=== PATIENT | female | born 1940 | race Caucasian/White ===

== ENCOUNTER 2018-08-24 16:27 | Observation (INO) ==
--- NOTE | 2018-08-24 17:56 | Diag Imaging Result Doc PS360 ---
CHEST-PORTABLE - 08/24/2018 INDICATION: syncope COMPARISON: 06/08/2014 FINDINGS: The lungs are normally expanded and clear. Heart size and mediastinal contours are normal. No pneumothorax or pleural effusion. IMPRESSION: Negative exam. Electronically signed by Noel Jones 08/24/2018 5:54 PM
--- NOTE | 2018-08-24 18:01 | Diag Imaging Result Doc PS360 ---
CT HEAD W/O CONTRAST - 08/24/2018 INDICATION: syncope COMPARISON: None FINDINGS: There is some dilation of the lateral ventricles. There is extensive periventricular cerebral white matter hypodensity bilaterally. No intracranial mass or midline shift. No intracranial hemorrhage. The skull is intact. The sinuses, mastoids, and middle ears are clear. IMPRESSION: Dilated ventricles out of proportion to the cerebral atrophy. This may represent normal pressure hydrocephalus. Periventricular white matter hypodensity may represent edema from this or chronic microvascular disease. This exam was performed using automated exposure control, adjustment of mA or kV according to patient size, and/or use of iterative reconstruction technique Electronically signed by Noel Jones 08/24/2018 5:58 PM
[2018-08-24 18:14] LABS: BASO# 0.01 X1000 (0.0-0.2); BASO% 0.1 % (0.0-0.8); EOS# 0.09 X1000 (0.0-0.7); EOS% 0.7 % (0.0-10.0); HEMATOCRIT 42.8 % (37.0-47.0); HEMOGLOBIN 14.5 g/dL (12.0-16.0); IMM GRAN# 0.03 X1000 (0.0-0.04); IMM GRAN% 0.2 % (0.0-0.5); LYMPH# 0.78 X1000 (1.2-3.4); LYMPH% 6.1 % (20.5-51.1); MCH 30.6 PG (27-31); MCHC 33.9 g/dL (33-37); MCV 90.3 FL (81-99); MONO# 0.64 X1000 (0.11-0.59); NEUT# 11.31 X1000 (1.4-6.5); NEUT% 87.9 % (42.2-75.2); PLT 271 X1000 (130-400); RBC 4.74 XMIL (4.2-5.4); RDW 12.7 % (11.5-14.5); WBC 12.86 X1000 (4.8-10.8)
[2018-08-24 18:29] LABS: ALB/GLOB RATIO 1.8; ALBUMIN 4.3 g/dL (3.5-5.0); CALCIUM 9.4 mg/dL (8.8-10.2); CREATININE 0.9 mg/dL (0.5-0.9); POTASSIUM 3.9 mmol/L (3.5-5.1); TOTAL BILIRUBIN 0.53 mg/dL (0.20-1.00); TOTAL PROTEIN 6.7 g/dL (6.3-8.3)
--- NOTE | 2018-08-24 18:57 | PROVIDER DOCUMENTATION ---
This chart was entered by Nidia Mayes Scribe, acting as scribe for Simba Mata DO. HPI-Syncope/Dizziness - General Source: patient, family (daughter), EMS - History of Present Illness-Syncope/Dizzy Prior Episodes: reports: single episode today Onset/Duration: reports: just prior to arrival Timing: reports: gone now Position/Activity at time of episode: reports: sitting Symptoms prior to episode: reports: abdominal pain, confusion. denies: headache, lightheaded, visual disturbance, nausea/vomiting, racing heart, back pain, diaphoresis, recent head trauma, rapid heart beat Context: reports: lost consciousness Loss of Consciousness: prolonged (minutes) (20) Current Symptoms: reports: none/feels normal Recently Seen Here or By Another Healthcare Provider: No <Simba Mata - Last Filed: 08/24/18 18:56> <Mukul Aranda - Last Filed: 08/24/18 20:24> - General Chief Complaint: Syncope Stated Complaint: SYNCOPE Time Seen by Provider: 08/24/18 16:35 Allergies/Adverse Reactions: Patient Allergies Allergy/AdvReac Type Severity Reaction Status Date / Time shellfish derived Allergy Severe ANAPHYLAXIS Verified 08/24/18 18:08 latex Allergy Unknown Verified 08/24/18 18:08 Home Medications: Home Medication List Medication Instructions Recorded Confirmed Last Taken Type Lisinopril/Hydrochlorothiazide 1 each PO DAILY 06/02/13 04/25/18 04/24/18 08:00 History [Lisinopril-Hctz 10-12.5 mg Tab] Metoprolol Tartrate 50 mg PO BID 06/02/13 04/25/18 04/25/18 03:30 History Cyanocobalamin (Vitamin B-12) 5,000 mcg SL DAILY 04/22/18 04/25/18 04/24/18 17:30 History [Vitamin B-12] Sennosides/Docusate Sodium [Stool 2 each PO DAILY 04/22/18 04/25/18 04/23/18 17:30 History Softener-Laxative Tablet] Docusate Sodium [Colace] 100 mg PO BID #30 capsule 04/25/18 Unknown Rx Hydrocodone/Acetaminophen [[place] 1 each PO Q6H PRN PRN #10 tablet 04/25/18 Unknown Rx 5-325 Tablet] Ondansetron HCl [Zofran] 4 mg PO Q6H PRN PRN #10 tablet 04/25/18 Unknown Rx - History of Present Illness-Syncope/Dizzy Nature of Presenting Problem: 78 yof presents to the ed via ems with c/o syncopal episode while going to the t oilet, pt then was incontinent of stool and had 20 minutes of LOC per daughter. pt sts got up this am at 0300 and was getting ready to have Easter with family. pt sts was outside with great grandchildren when she felt the urge for diarrhea and went in the house to the bathroom. pt made it to the bathroom and then had a syncopal episode. pt was confused when ems aos and enroute to er pt came back t o baseline. pt on exam is back to baseline and in no distress. daughter is with pt (Simba Mata) Review of Systems - Adult - REVIEW OF SYSTEMS - ADULT Constitutional: denies: chills, fever Eyes: reports: no symptoms reported Ears, Nose, Mouth & Throat: reports: no symptoms reported Cardiovascular: reports: syncope. denies: chest pain, palpitations Respiratory: denies: cough, shortness of breath, wheezing Gastrointestinal: reports: see HPI, abdominal pain, diarrhea (x1). denies: nausea, vomiting Genitourinary: reports: no symptoms reported Musculoskeletal: reports: no symptoms reported Integumentary: reports: no symptoms reported Neurological: denies: dizziness/vertigo, headache/migraines Psychiatric: reports: no symptoms reported Endocrine: reports: no symptoms reported Hematologic/Lymphatic: reports: no symptoms reported Allergic/Immunologic: reports: no symptoms reported All Other Systems: Reviewed and Negative <Simba Mata - Last Filed: 08/24/18 18:56> Past History - Adult - PAST MEDICAL HISTORY-ADULT Review of Records: reports: Nursing Assessment Review, Medications Reviewed Major Childhood Illnesses: reports: denies history Cardiovascular: reports: HTN Respiratory: reports: denies history Gastrointestinal: reports: denies history Obstetrical/Gynecological: reports: denies history Genitourinary: reports: denies history Musculoskeletal: reports: denies history Neurological: reports: denies history Endocrine/Immune: reports: denies history Other Conditions: reports: denies history - PRIOR SURGERIES/PROCEDURES Surgical/Procedure History: reports: hernia repair - IMMUNIZATION STATUS Childhood Immunizations: See Nurse Assessment Flu Vaccine: See Nurse Assessment - FAMILY HISTORY Family History: reviewed, not pertinent - SOCIAL HISTORY Smoking: quit greater than 1 year Substance Use: alcohol Alcohol Use Frequency: 5-6 times a week (at night wine) Number of drinks per typical drinking period:: 1 drink Living Situation: family <Simba Mata - Last Filed: 08/24/18 18:56> Physical Exam-General - PHYSICAL EXAM-ADULT Initial Vital Signs Reviewed: Yes - CONSTITUTIONAL General Appearance: appears well, alert, no apparent distress (pt is back to baseline and in no distress) - EYES Eyes: PERRL/EOMI, pink conjunctivae - HEAD, EARS, NOSE, MOUTH & THROAT HENMT: moist mucous membranes, normal ENT inspection, TMs normal, pharynx normal - NECK Neck: non-tender, full range of motion, supple, normal inspection - RESPIRATORY Respiratory: chest non-tender, lungs clear, normal breath sounds, no pleuratic chest pain, no respiratory distress, no accessory muscle use - CARDIOVASCULAR Cardiovascular: normal peripheral pulses, regular rate, rhythm - CHEST (BREASTS) Chest/Breast: deferred - GASTROINTESTINAL (ABDOMEN) Abdominal Exam: normal bowel sounds, non tender, soft - LYMPHATIC Lymphatic: no adenopathy - MUSCULOSKELETAL Back Exam: normal inspection, no CVA tenderness, no vertebral tenderness Extremity: normal range of motion, non-tender, normal gait, normal inspection, no pedal edema, no calf tenderness, normal capillary refill, pelvis stable - SKIN Integumentary: normal color, normal turgor, warm/dry - NEUROLOGIC Neurologic: grossly normal, no motor/sensory deficits - PSYCHIATRIC Psych/Mental Status: normal mood/affect, normal thought content, normal thought process, oriented x 3 <Simba Mata - Last Filed: 08/24/18 18:56> Progress - PLAN OF CARE/RESULTS Result Diagrams: 08/24/18 17:53 08/24/18 17:53 - CHANGE OF SHIFT REPORT (ED Provider) 1 Report Given and Care Transferred to:: Dr Aranda Time of Transfer: 18:57 <Simba Mata - Last Filed: 08/24/18 18:56> - PLAN OF CARE/RESULTS Result Diagrams: 08/24/18 17:53 08/24/18 17:53 <Mukul Aranda - Last Filed: 08/24/18 20:24> - PLAN OF CARE/RESULTS Progress/Plan/Lab Results: Vital Signs - 8 hr 08/24/18 16:36 08/24/18 18:03 Temperature 98.6 F Pulse Rate 114 H Respiratory Rate 18 Blood Pressure 139/67 O2 Sat by Pulse Oximetry 95 98 Laboratory Results - last 24 hr 08/24/18 08/24/18 08/24/18 17:53 17:53 17:53 WBC 12.86 H RBC 4.74 Hgb 14.5 Hct 42.8 MCV 90.3 MCH 30.6 MCHC 33.9 RDW Std Deviation 12.7 Plt Count 271 MPV 10.0 Immature Gran % (Auto) 0.2 Neut % (Auto) 87.9 H Lymph % (Auto) 6.1 L [place] % (Auto) 5.0 Eos % (Auto) 0.7 Baso % (Auto) 0.1 Immature Gran # (Auto) 0.03 Neut # (Auto) 11.31 H Lymph # (Auto) 0.78 L [place] # (Auto) 0.64 H Eos # (Auto) 0.09 Baso # (Auto) 0.01 Sodium 134 L Potassium 3.9 Chloride 96 L Carbon Dioxide 25 Anion Gap 13 BUN 19 Creatinine 0.9 Estimated GFR/1.73 m2 60 BUN/Creatinine Ratio 21 Glucose 155 H POC Glucose Calculated Osmolality 274 Calcium 9.4 Total Bilirubin 0.53 AST 17 ALT 11 Alkaline Phosphatase 82 Creatine Kinase 79 Troponin T < 0.010 Total Protein 6.7 Albumin 4.3 Globulin 2.4 Albumin/Globulin Ratio 1.8 08/24/18 18:04 WBC RBC Hgb Hct MCV MCH MCHC RDW Std Deviation Plt Count MPV Immature Gran % (Auto) Neut % (Auto) Lymph % (Auto) [place] % (Auto) Eos % (Auto) Baso % (Auto) Immature Gran # (Auto) Neut # (Auto) Lymph # (Auto) [place]ayer # (Auto) Eos # (Auto) Baso # (Auto) Sodium Potassium Chloride Carbon Dioxide Anion Gap BUN Creatinine Estimated GFR/1.73 m2 BUN/Creatinine Ratio Glucose POC Glucose 179 H Calculated Osmolality Calcium Total Bilirubin AST ALT Alkaline Phosphatase Creatine Kinase Troponin T Total Protein Albumin Globulin Albumin/Globulin Ratio Orders Category Date Time Status CHEST-PORTABLE [RAD] Stat Exams 04/21/19 16:[address] HEAD W/O CONTRAST [CT] Stat Exams 08/24/18 16:50 Completed CBC WITH ELECTRONIC DIFF [HEME] Stat Lab 08/24/18 17:53 Completed CK PROFILE [SP CHEM] Stat Lab 08/24/18 17:53 Completed COMPREHENSIVE METABOLIC PANEL [CHEM] Stat Lab 08/24/18 17:53 Completed TROPONIN T Stat Lab 08/24/18 17:53 Completed UA NIMS W/REFLEX CULT [URINALYSIS] Stat Lab 08/24/18 16:52 Uncollected 0.9% Sodium Chloride Inj [Ns] 1,000 ml Med 08/24/18 20:19 Active IV 999 mls/hr EKG [EKG] Stat Ther 08/24/18 16:29 Ordered Pt signed out to me by Dr. Mata, pt has probable dehydration from diarrhea, given age and syncopal episode will admit for overnight observation (Mukul Aranda) Departure <Simba Mata - Last Filed: 08/24/18 18:56> - Departure Date of Disposition Decision: 08/24/18 Time of Disposition Decision: 20:23 Certified Medical Emergency: Emergent - Critical Care Note This patient required my direct & personal management of CC.: No <Mukul Aranda - Last Filed: 08/24/18 20:24> - Departure DIAGNOSIS: Syncope Qualifiers: Syncope type: unspecified Qualified Code(s): R55 - Syncope and collapse Diarrhea Qualifiers: Diarrhea type: presumed infectious Qualified Code(s): R19.7 - Diarrhea, unspecified Disposition: ADMITTED INPATIENT 09 Condition: Stable Referrals and Follow-Ups: Gilmar Preciado MD [Primary Care Provider] - Attestation - Physician/ SHARAD Attestation Patient care was provided by Advanced Practice Provider:: No The physician spent face to face time with patient:: Yes Advanced Practice Provider documentation review:: Supervising physician onsite and consulted in the evaluation and care of this patient. The physician did have a face to face encounter with the patient. <Simba Mata - Last Filed: 08/24/18 18:56> - Physician/ SHARAD Attestation Patient care was provided by Advanced Practice Provider:: No The physician spent face to face time with patient:: Yes Advanced Practice Provider documentation review:: Supervising physician onsite and consulted in the evaluation and care of this patient. The physician did have a face to face encounter with the patient. <Mukul Aranda - Last Filed: 08/24/18 20:24> This chart was documented by the indicated scribe, (Nidia Mayes, Alirio) and accurately reflects the services I performed and decisions made by , Simba Mata DO, as attested by the provider's signature.
[2018-08-24] MEDS ORDERED: NS 1,000 ML IV ONE (20:19)
[2018-08-24] MEDS ORDERED: IMODIUM PO ONE (20:41)
--- NOTE | 2018-08-24 21:38 | HISTORY AND PHYSICAL ---
PRIMARY CARE PHYSICIAN: Dr. Preciado. CHIEF COMPLAINT: Passed out and diarrhea. HISTORY OF PRESENTING ILLNESS: An 78-year-old female with a history of urinary incontinence, hypertension, B12 deficiency and gait apraxia who was brought to the emergency department after she had an episode where she passed out. The patient apparently was having Easter lunch with family then she felt like she was having diarrhea. She went to the bathroom. The next thing she knew that she somehow slumped over and passed out. The patient's family states that she was out for about 15 to 30 minutes. She was brought to the emergency department. She was evaluated and due to her presenting symptoms, it was thought that we will place her for observation for further evaluation, management. At the time of my examination, she denied any headache, fever, chills, chest pain, shortness of breath, hemoptysis, melena or any weight changes but complained of just feeling nauseated and possibly having diarrhea. The patient also has a history of gait ataxia. Unclear what workup she exactly had in the past. She had a CAT scan done which did show the possibility of normal pressure hydrocephalus. PAST MEDICAL HISTORY: Includes urine incontinence, hypertension, B12. PAST SURGICAL HISTORY: Hernia repair, right shoulder surgery, cataract surgery. ALLERGIES: Shellfish and latex. CURRENT MEDICATIONS: Include B12 5000 mcg sublingual daily, Colace 100 mg p.o. b.i.d., [place] 5/325 one p.o. q.6 hours, lisinopril HCT 10/12.5 one p.o. daily, metoprolol 50 mg p.o. b.i.d., Zofran 4 mg p.o. q.6 hours. SOCIAL HISTORY: A 40 pack years history of smoking. Admits to social alcohol use. Denies illicit drug use. FAMILY HISTORY: No history of coronary disease. REVIEW OF SYSTEMS: Fourteen point review of system is as in HPI. Other systems negative. PHYSICAL EXAMINATION: GENERAL: Cooperative, friendly, elderly female. She is resting comfortably now. VITAL SIGNS: Temperature 98.6 degrees, pulse 114, respirations 18, blood pressure 139/67, saturating 95%. HEENT: Atraumatic, normocephalic. Extraocular movements intact. PERRLA. NECK: No masses. CHEST: Clear to auscultation. CARDIOVASCULAR: Regular rate and rhythm. ABDOMEN: Soft. Positive bowel sounds. EXTREMITIES: No edema. NEUROLOGIC: She is awake, alert, oriented x3. : No bladder distention. SKIN: Warm. LABORATORIES AND STUDIES: WBC 12.86, hemoglobin 14.5, hematocrit 42.8, platelets 271,000. Sodium 134, potassium 3.9, chloride 96, CO2 25, BUN is 19, creatinine 0.9, glucose 155. CT of the head shows possibility of normal-pressure hydrocephalus. ASSESSMENT: An 78-year-old female with a history of hypertension, urine incontinence and B12 deficiency who had presented to emergency department with 1-day history of having an episode where she passed out. She was brought to the emergency department. Due to her presenting symptoms, we will place her for observation for further evaluation, management. 1. Syncopal episode. 2. Abnormal CT of the head showing normal pressure hydrocephalus. 3. Diarrhea. 4. Hypertension. PLAN: 1. We will admit patient to medical floor with telemetry. 2. Check orthostatic blood pressure and pulse. 3. We will continue with IV fluid hydration. 4. We will consult Neurology for evaluation of normal pressure hydrocephalus. 5. We will check stool studies including C difficile, fecal leukocytes. 6. We will monitor blood pressure closely. 7. Put patient on DVT prophylaxis with SCDs. 8. We will continue to follow and reassess and make further recommendation based on patient's clinical course. cc: Preet Addison MD MTDD
[2018-08-24] MEDS ORDERED: ZOFRAN IV PRN (22:31)
[2018-08-24] MEDS: NS 1,000 ML IV SCH (23:12)
[2018-08-25 03:01] LABS: URINE SOURCE CLEAN CATCH
[2018-08-25 03:05] LABS: BILIRUBIN URINE NEGATIVE (NEGATIVE); BLOOD URINE SMALL (NEGATIVE); COLOR YELLOW; GLUCOSE URINE NEGATIVE (NEGATIVE); KETONE URINE TRACE mg/dL (NEGATIVE); LEUKOCYTES URINE MODERATE (NEGATIVE); NITRITE URINE NEGATIVE (NEGATIVE); PH URINE 5.5; PROTEIN URINE TRACE mg/dL (NEGATIVE); SP GRAVITY URINE 1.016; TURBIDITY URINE CLEAR (CLEAR); UROBILINOGEN URINE NORMAL (NORMAL)
[2018-08-25 03:06] LABS: UR EPITHELIAL CELLS <10 /HPF (<10); URINE BACTERIA NEGATIVE /HPF; URINE RBC <10 /HPF (<10)
[2018-08-25 08:18] LABS: BASO# 0.02 X1000 (0.0-0.2); BASO% 0.2 % (0.0-0.8); EOS# 0.08 X1000 (0.0-0.7); HEMOGLOBIN 12.1 g/dL (12.0-16.0); LYMPH# 1.43 X1000 (1.2-3.4); LYMPH% 17.4 % (20.5-51.1); MCH 30.8 PG (27-31); MCHC 33.6 g/dL (33-37); MCV 91.6 FL (81-99); MONO# 0.65 X1000 (0.11-0.59); MONO% 7.9 % (1.7-9.3); MPV 10.1 FL (7.4-10.4); NEUT# 6.04 X1000 (1.4-6.5); NEUT% 73.5 % (42.2-75.2); PLT 219 X1000 (130-400); RBC 3.93 XMIL (4.2-5.4); RDW 12.5 % (11.5-14.5); WBC 8.22 X1000 (4.8-10.8)
[2018-08-25 08:25] LABS: AGAP 7; BUN 14 mg/dL (8-22); CALCIUM 8.3 mg/dL (8.8-10.2); CHLORIDE 105 mmol/L (98-107); COSMO 276; CREATININE 0.4 mg/dL (0.5-0.9); ESTIMATED GFR > 60; GLUCOSE 99 mg/dL (70-104); POTASSIUM 3.9 mmol/L (3.5-5.1); SODIUM 138 mmol/L (136-145); TCO2 26 mmol/L (25-35)
--- NOTE | 2018-08-25 08:25 | EKG Report ---
Test Performed on : 08/24/2018 5:48:26 PM Test Reason : syncope Blood Pressure : / mmHG Vent. Rate : 109 BPM Atrial Rate : 109 BPM P-R Int : 166 ms QRS Dur : 086 ms QT Int : 350 ms P-R-T Axes : 051 -09 031 degrees QTc Int : 471 ms Sinus tachycardia. Possible Left atrial enlargement Inferior infarct , age undetermined Cannot rule out Anterior infarct (cited on or before 08-JUN-2014) Abnormal ECG When compared with ECG of 22-APR-2018 13:12, Vent. rate has increased BY 41 BPM Inferior infarct is now present Nonspecific T wave abnormality no longer evident in Anterior leads Unconfirmed Result
[2018-08-25] MEDS: ASPIRIN EC PO SCH (12:12)
[2018-08-25] MEDS: VITAMIN B-12 SL SCH (12:12)
[2018-08-25] MEDS: LOPRESSOR PO SCH ×2 (12:12→20:22)
--- NOTE | 2018-08-25 13:22 | ECHO REPORT ---
ORDER DATE: 08/24/2018 INTERPRETING PHYSICIAN: Conner Morrell MD ECHOCARDIOGRAPHIC MEASUREMENTS: 1. Interventricular septum 1.3 cm. 2. Left ventricular posterior wall 1.3 cm. 3. Diastolic diameter 3.6 cm. 4. Left atrium 5 cm. 5. Aorta 3 cm. SUMMARY OF THE 2-DIMENSIONAL IMAGES: 1. There is left atrial enlargement. 2. The aortic valve leaflets are trileaflet. 3. Pulmonic valve was normal. 4. Tricuspid valve was normal. 5. Mitral valve was normal. 6. There is moderate mitral annular calcification. 7. Normal left ventricular cavity size. 8. Mild left ventricular hypertrophy. 9. Estimated ejection fraction of 65%. 10. There is diastolic dysfunction. 11. Peak velocity across the aortic valve less than 2 m/sec. 12. There is no aortic stenosis or regurgitation. 13. There is mild mitral regurgitation. 14. Mild tricuspid regurgitation. 15. Peak velocity across the tricuspid valve was 2.9 m/sec. 16. Pulmonary artery systolic pressure of 50 mmHg. 17. There is no pericardial effusion or obvious intracardiac mass or thrombus seen. cc: MD Preet Barnes MD
--- NOTE | 2018-08-25 13:57 | CONSULTATION ---
DATE OF CONSULTATION: 08/25/2018 REASON FOR CONSULT: Syncope and question of normal pressure hydrocephalus. HISTORY OF PRESENT ILLNESS: This is an 78-year-old, right-handed female who was admitted yesterday after a syncopal episode. History is from the patient chart review as well as a phone conversation with her daughter. The patient felt well yesterday, was having an Easter celebration at her house for which she had been working extra hard preparing. She was outside and sitting down watching her grandchildren play when she felt suddenly that she was about to have diarrhea. She got out and proceeded into the house, and began to feel flushed and warm. She felt a little bit lightheaded did not realize that she would pass out. She got into the bathroom and then felt generally weak, leaned against the wall and slid down. She was able to call for some assistance and was able to move herself from in front of the doorway. Her daughter reports that she just sort of became lethargic and slumped with very little interaction. She felt this persisted for up to 30 minutes' time as they had her sitting upright. EMS was summoned. The patient felt that she did pass out. She actually said the next thing she recalls was awakening in the ambulance. She began to have profuse diarrhea starting in the ambulance ride and continuing on occasions while in the emergency department. She denied accompanying symptoms such as headache or focal neurologic symptoms, visual changes. No chest pain or shortness of breath. Her symptoms are currently resolved and she is quite eager for discharge today. She has not had similar symptoms in the past. Blood pressure on arrival was 139/67, head CT on arrival was read as dilated ventricles out of proportion to the cerebral atrophy which may represent normal pressure hydrocephalus. There is also periventricular white matter hypodensity and interpreted as may be representing edema from the former or just chronic microvascular disease. The patient and daughter report no significant cognitive impairment. The patient lives alone and takes care of herself. She drives. She is retired. She reports having nocturnal urinary incontinence for at least a year if not longer. She is being followed for this by a physician. She does not have incontinence during the daytime, only while asleep. She also reports some balance issues for quite some time now. She reports if she turns to the right she tends to lose her balance but this does not occur if she turns to the left. She is able to use a walker and do very well with that. She has been going to some balance therapy and felt that has been helpful for her. She reports normal amount of steps with turns. No recent falls other than what occurred at presentation. No visual changes, headaches, nausea or vomiting. PAST MEDICAL HISTORY: 1. Hypertension. 2. Nocturnal urinary incontinence. 3. Balance difficulty. 4. Hernia repair. 5. Right shoulder surgery. 6. Cataract surgery. FAMILY HISTORY: Reviewed and noncontributory. SOCIAL HISTORY: She smokes 2 or 3 cigarettes daily. She drinks a small glass of wine at night. No illicits. She lives alone and is able to care for herself. She drives. She is retired. ALLERGIES: Listed to shellfish and latex. MEDICATIONS AT HOME: Reviewed in the chart. Include B12, Colace, [place], lisinopril, metoprolol and Zofran. REVIEW OF SYSTEMS: Balance of 12 was conducted and is otherwise negative except that detailed in the HPI. PHYSICAL EXAMINATION: Vital Signs: Afebrile. Blood pressure 136/50. Pulse is 83 to 140, respirations 18, 99% on room air. Ms. Stewart is supine in bed. Awake, alert, fully oriented. Speech is fluent. No language disturbance. No dysarthria. She is spontaneous with good concentration. Follows simple and complex commands. Left and right digit distinction preserved. HEENT: Pupils equal, round, reactive to light. Gaze conjugate, extraocular movements are full. Visual schmid intact to direct confrontational testing. She can hear, face symmetric with equal activation. Facial sensation reported intact, tongue is midline. Palate elevates symmetrically. Extremities: Shoulder shrug is full. No drift. Tone is equal in the limbs. No resting tremor noted. Strength is preserved in the arms and legs. Sensation reported symmetric in the arms and legs. Reflexes absent at the ankles. Trace at the knees, trace at the wrist. No clonus. Plantar response is downgoing. [id number] and rapid alternating movements are intact and symmetric. [id number] intact. I did not test her gait. She did not have her walker with her and there was no one to assist me. DIAGNOSTICS: Head CT noncontrast personally reviewed. The official read is as per above. LABORATORY STUDIES: White count was 12.8 on admission. Today is normalized. Neutrophils 11.3 on admission. Today normalized. Sodium 134, today normalized. BUN and creatinine not elevated. Blood sugars 150s to 170s. AST and ALT normal, calcium 8.3. Urinalysis, trace protein, ketones, small blood, moderate leukocytes, 10 to 20 white cells, less than 10 epithelial cells. Negative bacteria with culture pending. Stool occult blood is positive. C diff is negative. ASSESSMENT AND PLAN: 1. Apparent syncopal episode. There may have been a more prolonged loss of time but I think that seizure is less likely. Agree with the syncopal workup per primary team. Will order routine EEG. 2. Question of enlarged ventricles on the head CT study raising the question of normal pressure hydrocephalus. I had an extensive conversation with the patient regarding the workup and treatment of such a diagnosis. The patient is adamant that she is not interested in proceeding with this. I do think it is reasonable to obtain the MRI of the brain with and without contrast to be more certain there is not an obstructive hydrocephalus or other etiology. I have ordered that study. Otherwise she can continue with her physical therapy and we are happy to see her in the office in the future should she wish. Thank you for the consultation. cc: Haily Luevano MD
--- NOTE | 2018-08-25 15:32 | PROGRESS NOTE ---
DATE: 08/25/2018 SUBJECTIVE: This patient is completely asymptomatic today. She has requesting actually to go home but I told the patient that it is too soon. She has a head CT scan that showed the possibility of normal-pressure hydrocephalus. She needs to be evaluated by Neurology Department. Echocardiogram did not show any problem with ejection fraction and actually is 65%. She does have some pulmonary hypertension with a pulmonary artery systolic pressure of 50 mmHg, no aortic stenosis or regurgitation. As per the patient, yesterday she was at home and then after going to the bathroom, she started having some dizziness and at some point, she passed out. After that, apparently in the ambulance, she started having severe diarrhea which has already stopped. She came in with a white blood cell count of 12.8 and hemoglobin of 14.5. Calcium level 9.3, glucose 155, and BUN and creatinine a little bit above her normal number but still within normal limits. She received some fluids and now everything looks better. Her white blood cells resolved. Her sodium level is normal as well and the BUN and creatinine at baseline. She is not complaining of chest pain or shortness of breath. Her 1st set of troponins was negative and we are going to repeat a couple of more times the troponins today. I believe this was related with the sudden onset of diarrhea and likely dehydration. Vital signs are stable and actually I put her back on her home medications. We will wait for the images recommended by Neurology Department and hopefully tomorrow we can discharge this patient. On the other hand, we checked for C. diff in the stool, which was negative x2, and also we checked for occult blood in the stool. She did not see any blood on her stools, and probably this blood is related to the diarrhea/possible viral process. I will suggest to evaluate this patient as an outpatient with Gastroenterology Department once she is discharged, but she is not anemic. I will get a new hemoglobin and hematocrit in the morning as well. If there is a significant drop, probably she needs to be scoped. OBJECTIVE: Vital Signs: Temperature 98 degrees, pulse 67, respiratory rate 16, blood pressure 160/73, oxygen saturation 100% on room air. HEENT: Head normocephalic. No trauma. PERRLA. Neck: Supple. No JVD. No masses. Central trachea. Chest: Clear to auscultation. No wheezing. No rales. Cardiovascular: Regular rate and rhythm. Abdomen: Soft. Nontender, nondistended. No hepatosplenomegaly. Extremities: No edema, no clubbing, no cyanosis. Neurologic: The patient is alert and oriented x3. No focal deficits. LABORATORY DATA: WBC 8.2, hemoglobin 12.1, hematocrit 36, platelets 219. Sodium 138, potassium 3.9, chloride 105, bicarbonate 26, BUN 14, creatinine 0.4, glucose 99, calcium 8.3. ASSESSMENT AND PLAN: 1. Syncopal episode. I do believe this is related to an acute condition like her sudden onset of diarrhea. On top of that, she has been taking blood pressure medication that probably also increased her symptoms. The diarrhea is better. C diff is negative. She does have some occult blood in the stool, but probably this is related to the diarrhea/infectious process, which likely is vital or probably related to some indigestion. The hemoglobin is within normal limits, and I will recheck that in the morning again. She denies any current dizziness, palpitation, chest pain. We will recheck her troponins a couple of more times. EKG did not show significant changes. After getting IV fluids, numbers are better. 2. Abnormal CT of the head showing normal-pressure hydrocephalus. Neurology department has been consulted. I believe they will ask for an MRI and EEG. Will wait for more recommendations. 3. Diarrhea. This is getting better. This is getting better, when I evaluated this patient, she denied any bowel movement so far, but as per the patient, it was really bad yesterday. 4. Hypertension. Continue with home medication. 5. History of constipation. I will hold any stool softener since this patient has been having diarrhea. Overall, this patient feels good. Basically she is asymptomatic at this moment. Neurology department will workup this patient for normal-pressure hydrocephalus. She denies any diarrhea at this moment. She does have an occult blood in the stool, but probably this can be worked up as an outpatient. Hemoglobin is normal. This patient can be discharged in the next 24 hours after all the results are back. cc: Palomo Lilly MD
--- NOTE | 2018-08-25 16:56 | Diag Imaging Result Doc PS360 ---
EXAM: MRI BRAIN W/WO CONTRAST 08/25/2018 HISTORY: syncope, question raised on CT re NPH TECHNIQUE: T1 sagittal, axial and post gadolinium axial with coronal reformation, T2, FLAIR, DWI axial and coronal gradient echo. COMMENT: There is periventricular white matter hyperintensity on the T2 and FLAIR images. There are some patchy areas of increased T2-weighted signal intensity in the nikki and midbrain. There is no evidence of restricted diffusion. There is no evidence of mass effect or abnormal extra-axial fluid collection. There is no evidence of bleed or abnormal contrast enhancement. There is some atrophy around the sylvian fissures which are well preserved. There is a flow void in the aqueduct on the T2-weighted images. This is a nonspecific finding but can be seen in normal pressure hydrocephalus. IMPRESSION: Extensive white matter changes which are probably due to microvascular disease, however the possibility of some transependymal resorption of CSF cannot be excluded. Diagnosis of normal pressure hydrocephalus cannot be excluded. Electronically signed by Sonny Valencia 08/25/2018 4:54 PM
[2018-08-25] MEDS: PRINZIDE 10/12.5MG PO SCH (17:44)
[2018-08-25] MEDS: NS 1,000 ML IV SCH ×2 (17:45→20:22)
[2018-08-25] MEDS ORDERED: COLACE PO SCH (21:00)
[2018-08-26] MEDS: NS 1,000 ML ONE ×2 (04:21→04:59)
[2018-08-26 07:25] LABS: BASO# 0.02 X1000 (0.0-0.2); BASO% 0.2 % (0.0-0.8); EOS% 3.7 % (0.0-10.0); HEMATOCRIT 36.6 % (37.0-47.0); HEMOGLOBIN 12.1 g/dL (12.0-16.0); LYMPH# 1.42 X1000 (1.2-3.4); LYMPH% 17.4 % (20.5-51.1); MCH 30.4 PG (27-31); MCHC 33.1 g/dL (33-37); MONO# 0.51 X1000 (0.11-0.59); MONO% 6.2 % (1.7-9.3); MPV 9.8 FL (7.4-10.4); NEUT# 5.93 X1000 (1.4-6.5); NEUT% 72.5 % (42.2-75.2); PLT 190 X1000 (130-400); RBC 3.98 XMIL (4.2-5.4); RDW 12.8 % (11.5-14.5); WBC 8.18 X1000 (4.8-10.8)
[2018-08-26 08:07] LABS: AGAP 4; ALB/GLOB RATIO 1.5; ALBUMIN 3.5 g/dL (3.5-5.0); ALKALINE PHOSPHATASE 68 U/L (32-104); BUN 5 mg/dL (8-22); CALCIUM 8.6 mg/dL (8.8-10.2); CHLORIDE 98 mmol/L (98-107); COSMO 266; CREATININE 0.4 mg/dL (0.5-0.9); ESTIMATED GFR > 60; GLUCOSE 82 mg/dL (70-104); GOT 14 U/L (10-30); GPT 9 U/L (10-36); POTASSIUM 3.1 mmol/L (3.5-5.1); SODIUM 135 mmol/L (136-145); TCO2 33 mmol/L (25-35); TOTAL PROTEIN 5.8 g/dL (6.3-8.3)
[2018-08-26] MEDS: ASPIRIN EC PO SCH (09:08)
[2018-08-26] MEDS: PRINZIDE 10/12.5MG PO SCH (09:08)
[2018-08-26] MEDS: LOPRESSOR PO SCH (09:08)
[2018-08-26] MEDS: VITAMIN B-12 SL SCH (09:08)
--- NOTE | 2018-08-26 11:59 | EEG REPORT ---
DATE: 08/25/2018 REFERRING: Haily Luevano MD CAREER DEVELOPER: Sita Pabon BACKGROUND INFORMATION: Technique: This is a digitally recorded routine EEG with video history. HISTORY: 78-year-old female with an episode of loss of consciousness. The family reports the patient was out for 15 to 30 minutes. EEG is ordered to detect evidence of seizures. MEDICATIONS: Vitamin B12, aspirin, Lopressor. EEG FINDINGS: A moderately well-formed 8.5 to 9 Hz posterior dominant alpha rhythm is seen symmetrically in the occipital regions. At maximal alertness, the anterior background consists of mixed alpha and beta range frequencies. No definite persistent focal slowing. No epileptiform discharges. No seizures. Hyperventilation is not performed. Photic stimulation does not alter the record. The patient becomes drowsy, but stage II sleep is not seen. IMPRESSION AND CLINICAL CORRELATION: Normal routine EEG in the awake and drowsy states. Of note, a normal EEG does not rule out epilepsy. Clinical correlation is recommended. cc: Haily Luevano MD
[2018-08-26 13:18] VITALS: BP 152/62
--- NOTE | 2018-08-26 16:24 | Carotid Study ---
DATE: 08/24/2018 PROCEDURE: Bilateral carotid duplex. REQUESTING PHYSICIAN: Dr. Addison. INTERPRETING PHYSICIAN: Dr. Christiano Preciado. TECH: [place]. INDICATIONS: Syncope. OBSERVED DATA RIGHT LEFT Brachial Blood Pressure Carotid Pulse Bruits: Carotid/Sub DIAGRAM OF ULTRASOUND IMAGING R L RIGHT INT EXT INT EXT LEFT Binu (cm/s) Binu (cm/s) Subclavian 101/5 Subclavian 122/0 CCA Proximal 86/11 CCA Proximal 97/13 CCA Distal 79/15 CCA Distal 88/14 Bulb 84/17 Bulb 79/11 ICA Proximal 67/17 ICA Proximal 83/14 ICA Mid 62/15 ICA Mid 65/16 ICA Distal 90/22 ICA Distal 71/16 ECA 116/7 ECA 89/8 Vertebral 61/11 A Vertebral 68/11 A ICA/CCA Ratio 1.04 ICA/CCA Ratio 0.86 % Stenosis 0-39% % Stenosis 0-39% FINDINGS: There is only mild atherosclerotic changes noted in the bilateral carotid bulbs. This does not cause hemodynamically significant changes. SUMMARY: Mild atherosclerotic disease of bilateral carotid bulbs. cc: MD Preet Calle MD
--- NOTE | 2018-08-26 17:01 | DISCHARGE SUMMARY ---
ADMISSION DATE: 08/24/2018 DISCHARGE DATE: 08/26/2018 PRIMARY CARE PHYSICIAN: Dr. Gilmar Preciado. HISTORY: She presented on 08/24/2018 after she passed out and had some diarrhea. She is an 78- year-old female with a history of urinary incontinence, hypertension, B12 deficiency, and gait apraxia, who was brought to the emergency department after she had an episode of passing out. Apparently she was having Easter lunch with her family and felt like she had some diarrhea, went to the bathroom, and the next thing she knew she had slumped over and passed out. The patient's family states she was out for about 15-30 minutes. Brought to the emergency department, evaluated, and due to her presenting symptoms, she was placed in observation for further evaluation and management. At the time of examination in the emergency room denied any headache, fever, chills, chest pain, shortness of breath, hemoptysis, melena, any weight change, or any complaints of feeling nauseated. She did feel nauseated after she came to after the syncopal episode and possibly a little nausea with her diarrhea. She has a history of gait ataxia and unclear, but she has had workup in the past. CAT scan done of the head, possibly a little bit of normal-pressure hydrocephalus, but this was not real distinct. PAST MEDICAL HISTORY: Urinary incontinence, hypertension, and B12 deficiency. PAST SURGICAL HISTORY: She has had hernia repair, right shoulder surgery, and cataract surgery. ALLERGIES: Shellfish and latex. She did not have any fish or shellfish on the day of admission. HOSPITAL COURSE: So admitted for syncopal episode. [place] like it was likely vasovagal. An echocardiogram done on 08/24 really unremarkable. No valvular dysfunction. Ejection fraction 65% with normal left ventricular size. She did have mild left ventricular hypertrophy which was concentric. There was mild mitral regurgitation and mild tricuspid regurgitation but no aortic stenosis. She had an MRI of her head, extensive white matter changes, possibly due to microvascular disease. However, possibly some transepidermal reabsorption of CSF could not be excluded, so it could be some mild normal-pressure hydrocephalus. The patient had no further episodes. Her EKGs were unremarkable. Her lab was unremarkable. Hematocrit 36, hemoglobin 12. Electrolytes looked good with good renal function. Troponin is less than 0.01. So felt she could go home on 08/26/2018. Continue her current medications. FOLLOW UP: She will follow up with Dr. Preciado in a week. DISCHARGE MEDICATIONS: She takes aspirin 81 mg a day, vitamin B12 5000 mcg sublingual daily, Colace 100 mg b.i.d., [place] 5/325 one q.6 hours p.r.n. pain, I think she just had 10 of these tablets, lisinopril hydrochlorothiazide 10/12.5 daily, metoprolol 100 mg b.i.d., Myrbetriq 50 mg p.o. daily, and she has stool softener, sennosides and docusate combination 2 daily. Will continue these medications. cc: Levi Rodríguez MD
--- NOTE | 2018-08-26 17:29 | PROGRESS NOTE ---
DATE: 08/26/2018 SUBJECTIVE: No major overnight events. The patient denies complaints. OBJECTIVE: Vital Signs: Afebrile. Blood pressure 152/62, pulse 64. General: Ms. Stewart is sitting up in bed eager for discharge. She is awake, alert, and oriented. No language disturbance. No dysarthria. She is appropriate and conversational. Smiles and laughs often spontaneous. Pupils are equal and reactive. Gaze conjugate. Ocular movements full. Face symmetric with equal activation. Tongue is midline. Palate elevates symmetrically. She moves her extremities spontaneously without obvious focal deficit. Power is preserved in the arms and legs and symmetric. I watched her walk today. She got up from the bed without difficulty. Used a cane and walked several times back and forth in the room unassisted. She does alternate forward steps, and there is some amount of reduced stride that is visible to a relatively milder degree. It takes her about 3 steps to rotate 180 degrees. Her gait is not particularly wide based, there is good arm swing with the free arm. DIAGNOSTICS: Routine EEG was personally reviewed. Normal in the awake and drowsy states. MRI of the brain was personally reviewed. There were extensive microvascular ischemic changes. However, there is mention of the possibility of some transependymal resorption of CSF cannot be excluded. Diagnosis of NPH cannot be excluded. There is also mention of a flow void in the aqua duct on T2- weighted imaging which is a nonspecific finding but can be seen with normal-pressure hydrocephalus. There are no MRIs for comparison. Labs reviewed in the chart. ASSESSMENT AND PLAN: 1. Apparent syncopal episode. Agree with workup per primary team. EEG was not suggestive of increased propensity to seizure. 2. Relatively enlarged ventricles on imaging and question of normal pressure hydrocephalus. Her gait today is somewhat equivocal. It is not particularly broad-based, but the strides are relatively short and her turns are slowed. She reports some isolated nocturnal urinary incontinence only which could be unrelated. There are no major cognitive findings during my time at the bedside. I discussed this with them. Again, the patient is not interested in workup at this time which would include lumbar puncture with pre and post gait evaluation. Ultimately, she is adamant that she is not interested in shunt procedure should a diagnosis of NPH be made. I would continue with physical therapy and continue to follow her clinically. I would also recommend repeating the MRI in a few months' time specifically to look at any change in ventricular size. If symptoms persist or she worsens or other issues arise, we would be happy to see her in the office. cc: Haily Luevano MD
== END 2018-08-26 18:01 | disposition home or self-care (01) ==
LOC: SUPCPDRO → ED 16:27 → 3N 21:53 → INTOOBSV 21:53 → SUATTDRO 21:53
PROVIDERS: ATTEND Emergency Medicine
CPT/HCPCS: 70450; 70553; 71010; 71045; 80048; 80053; 81001; 82270; 82550; 82948; 83630; 84484; 85025; 87088; 87324; 93005; 93306; 93880; 95816; 99285; A9270; A9579; J7030; XXXXX